=== PATIENT | male | born 1980 | race Asian ===

== ENCOUNTER 2019-06-01 07:48 | Emergency (ER) | payer BC, MEDICAID ==
[~2019-06-01] VITALS: Ht 162.6 cm; Wt 64.0 kg
[~2019-06-01 07:48] MED LIST: ALBU0.63 NEB
--- NOTE | 2019-06-01 08:11 | NUR ---
PT PRESENTS WITH SOB AND IS TACHY. PT REPORTS THAT HE USED HIS ALBUTERAL INHALER APPROX. 10 TIMES IN 1 HOUR, LAST TIME BEING AROUND 0700. PT IS CALM AND RESTING IN BED WATCHING TV WITH VISITOR AT BEDSIDE. PT IS TALKING VERY FAST AND HIS RR ARE APPROX 22-26, BUT STATES HE FEELS MUCH BETTER THAT HE DID AT HOME. PT ON SERIAL VS AND A HEART MONITOR. DENIES ANY NEEDS. ROUNDED.
[2019-06-01 08:21] VITALS: BP 152/84
--- NOTE | 2019-06-01 08:22 | NUR ---
PT MEDICATED WITH PREDNISONE. MED EDUCATION PROVIDED, PT VERBALIZED UNDERSTANDING. NAD.
[2019-06-01] MEDS ORDERED: ALBUTEROL/IPRATROPIUM 2.5MG/0.5MG, 3 ML NPPB SCH (08:30)
--- NOTE | 2019-06-01 08:31 | NUR ---
I CALLED [facility] AND SPOKE WITH AMISH. I GAVE A FOCUSED REPORT ON PT AND REPORTED THAT A BREATHING TREATMENT HAD BEEN ORDERED. HE SAID HE WOULD BE DOWN TO SEE THE PT.
[2019-06-01] MEDS ORDERED: ALBUTEROL/IPRATROPIUM 2.5MG/0.5MG, 3 ML ONE (08:43)
--- NOTE | 2019-06-01 08:45 | NUR ---
ASKED AGUEDA TO DO EKG.
--- NOTE | 2019-06-01 08:47 | NUR ---
PT SENT TO BATHROOM TO OBTAIN UA.
--- NOTE | 2019-06-01 08:52 | NUR ---
STATES URINE SAMPLE NOT NEEDED. URINE DISCARDED
--- NOTE | 2019-06-01 08:53 | NUR ---
RT AT BEDSIDE TO GIVE BREATHING TREATMENT. EKG BEING PERFORMED.
--- NOTE | 2019-06-01 09:40 | NUR ---
PT RESTING, NO SIGNS OF DISTRESS. PT REPORTS HE FEELS MUCH BETTER. VSS. POC AND DISCHARGE EXPLAINED TO PT AND HE VERBALIZED UNDERSTANDING.
--- NOTE | 2019-06-01 09:56 | NUR ---
TASK RN: Patient/Caregiver given discharge instructions and they have confirmed that they understand the instructions. Patient ambulatory with steady gait.
== END 2019-06-01 09:57 | disposition home or self-care (01) ==
LOC: ED 09:32
DX: J45.31 Mild persistent asthma with (acute) exacerbation (principal); F17.200 Nicotine dependence, unspecified, uncomplicated; Z88.1 Allergy status to other antibiotic agents
CPT/HCPCS: 93005; 94640; 99283; J7512; J7620